=== PATIENT | female | born 2000 | race Caucasian/White ===

== ENCOUNTER 2019-05-25 22:33 | Emergency (ER) | payer BC ==
[~2019-05-25] VITALS: Ht 162.6 cm; Wt 123.4 kg
--- NOTE | 2019-05-25 22:40 | NUR ---
PT TAKEN TO BED 6
[2019-05-25 22:44] VITALS: BP 124/97
--- NOTE | 2019-05-25 22:54 | NUR ---
Dr. Mancini examining patient.
--- NOTE | 2019-05-25 23:00 | NUR ---
PT C/O BELLY BUTTON PAIN X2 DAYS. PT STATES SHE FELT A POP AFTER GETTING INTO HER CAR. / SHARP PAIN WITH BENDING, PT STATES PAIN RADIATES TO LOWER BACK. DENIES N/V/D. RR EVEN AND UNLABORED. DENIES ANY OTHER PAIN. PT RESTING IN BED, CALM, WITH FRIEND AT BEDSIDE. LMP 05/25/19 MEDHX: DENIES ALLERGIES: DENIES
[2019-05-25] MEDS ORDERED: KETOROLAC 30 MG/ML VIAL IVP ONE (23:15)
[2019-05-25] MEDS ORDERED: NACL 0.9% 1,000 ML IV ONE (23:15)
--- NOTE | 2019-05-25 23:23 | NUR ---
PT AMBULATED TO RESTROOM
--- NOTE | 2019-05-25 23:51 | NUR ---
PT TAKEN TO CT VIA WHEELCHAIR
--- NOTE | 2019-05-26 | NUR ---
PT RETURN FROM CT
--- NOTE | 2019-05-26 00:53 | NUR ---
PT AMBULATED TO RESTROOM. VSS
--- NOTE | 2019-05-26 01:56 | NUR ---
Patient discharged with v/s stable. Written and verbal after care instructions given and explained. Patient alert, oriented and verbalized understanding of instructions. Ambulatory with to home. All questions addressed prior to discharge. ID band removed. Patient advised to follow up with PMD. Rx of MOTRIN 800MG, LACTULOSE 10ML, MINERAL OIL 30 ML given. Patient educated on indication of medication including possible reaction and side effects. Opportunity to ask questions provided and answered.
[2019-05-26 01:57] VITALS: BP 124/97
== END 2019-05-26 01:56 | disposition home or self-care (01) ==
LOC: MED 22:33
DX: K59.00 Constipation, unspecified (principal); Z88.0 Allergy status to penicillin
CPT/HCPCS: 74176; 81025; 96374; 99283; J1885; J7030